=== PATIENT | male | born 1990 | race Hispanic/Latino ===

== ENCOUNTER 2017-11-09 14:11 | Emergency (ER) | payer SELFPAY ==
[2017-11-09 14:45] LABS: APPEARANCE,URINE CLEAR (CLEAR); BILIRUBIN,URINE NEGATIVE (NEGATIVE); COLOR,URINE YELLOW (YELLOW); GLUCOSE, URINE (UA) NEGATIVE (NEGATIVE); KETONES,URINE NEGATIVE (NEGATIVE); LEUKOCYTE ESTERASE ,URINE NEGATIVE (NEGATIVE); NITRATE,URINE NEGATIVE (NEGATIVE); OCCULT BLOOD,URINE NEGATIVE (NEGATIVE); PROTEIN,URINE NEGATIVE (NEGATIVE); UROBILINOGEN,URINE 0.2 mg/dL (0.2-1.0)
[2017-11-09] MEDS ORDERED: CEFTRIAXONE SODIUM 500 MG VIAL ONE (14:53)
[2017-11-09] MEDS ORDERED: AZITHROMYCIN 250 MG TABLET PO ONE (14:53)
[2017-11-09] MEDS ORDERED: LIDOCAINE HCL-MPF 1% 2ML VIAL ONE (14:54)
== END 2017-11-09 15:02 | disposition home or self-care (01) ==
LOC: EDH 14:11
DX: A64 Unspecified sexually transmitted disease (principal)
CPT/HCPCS: 81003; 87486; 87797; 96372; 99284; J0696; J3490

== ENCOUNTER 2018-05-06 19:45 | Emergency (ER) | payer OTHER ==
[2018-05-06] MEDS ORDERED: IBUPROFEN 600 MG TABLET ONE (20:27)
== END 2018-05-06 21:57 | disposition home or self-care (01) ==
LOC: EDH 19:45
DX: S20.221A Contusion of right back wall of thorax, initial encounter (principal); Y04.0XXA Assault by unarmed brawl or fight, initial encounter; Y93.89 Activity, other specified; Y92.89 Other specified places as the place of occurrence of the external cause; Y99.8 Other external cause status
CPT/HCPCS: 72070

== ENCOUNTER 2019-10-12 12:47 | Emergency (ER) | payer SELFPAY ==
[2019-10-12] MEDS ORDERED: ACETAMINOPHEN EXTRA STRENGTH 500 MG TABLET ONE ×2 (14:36→14:37)
[2019-10-12 15:04] LABS: RAPID GROUP A STREP NEGATIVE (NEGATIVE)
[2019-10-12] MEDS ORDERED: SODIUM CHLORIDE 0.9% 1000ML 2,000 ML IV ONE (15:29)
[2019-10-12 15:37] LABS: APPEARANCE,URINE CLEAR (CLEAR); BILIRUBIN,URINE SMALL (NEGATIVE); COLOR,URINE YELLOW (YELLOW); GLUCOSE, URINE (UA) NEGATIVE (NEGATIVE); KETONES,URINE 5 mg/dL (NEGATIVE); LEUKOCYTE ESTERASE ,URINE NEGATIVE (NEGATIVE); NITRATE,URINE NEGATIVE (NEGATIVE); OCCULT BLOOD,URINE TRACE-INTACT (NEGATIVE); PH,URINE 5.5 (5.0-8.0); PROTEIN,URINE 30 mg/dL (NEGATIVE)
[2019-10-12 15:41] LABS: BASOPHILS % (AUTO) 0.3 % (0.0-5.0); HEMATOCRIT 45.7 % (42-54); LYMPHOCYTES % (AUTO) 12.4 % (21.0-51.0); MEAN CORPUSCULAR HEMOGLOBIN 28.6 pg (27.0-33.0); MEAN CORPUSCULAR HGB CONC 33.7 g/dL (32.0-36.0); MEAN CORPUSCULAR VOLUME 84.9 fL (79-99); MONOCYTES % (AUTO) 9.8 % (3.0-13.0); NEUTROPHILS % (AUTO) 77.2 % (40.0-77.0); PLATELET COUNT (AUTO) 234 K/uL (130-400); RED BLOOD CELL COUNT(AUTO) 5.38 MIL/uL (4.50-6.20); RED CELL DISTRIBUTION WIDTH 13.4 % (11.0-15.5); WHITE BLOOD COUNT (AUTO) 5.8 K/uL (4.8-10.8)
[2019-10-12] MEDS ORDERED: IPRATROPIUM/ALBUTEROL SULFATE 3 ML SOLUTION IH ONE ×2 (15:43→16:30)
[2019-10-12 15:57] LABS: INR 1.07 (0.85-1.15); PARTIAL THROMBOPLASTIN TIME 32.1 SEC (26.3-35.5); PROTHROMBIN TIME 11.2 SEC (9.6-11.6)
[2019-10-12 16:02] LABS: CREATININE 1.2 mg/dL (0.5-1.5); POTASSIUM 3.6 mmol/L (3.5-5.1)
[2019-10-12] MEDS ORDERED: CEFTRIAXONE SODIUM 1 GM ONE (16:05)
[2019-10-12 16:06] LABS: ALBUMIN 3.9 g/dL (3.5-5.0); BILIRUBIN,TOTAL 0.4 mg/dL (0.2-1.0); TOTAL PROTEIN, SERUM 8.3 g/dL (6.0-8.3)
[2019-10-12 16:17] LABS: BACTERIA,URINE Few /HPF (None Seen); WBC,URINE 0-1 /HPF (0-1)
== END 2019-10-12 18:32 | disposition home or self-care (01) ==
LOC: EDH 12:47
DX: J18.9 Pneumonia, unspecified organism (principal); G40.909 Epilepsy, unspecified, not intractable, without status epilepticus; Z72.0 Tobacco use
CPT/HCPCS: 36415; 71046; 80053; 81001; 83605; 84484; 85025; 85610; 85730; 87040; 87804 ×2; 87880; 93005; 94640 ×2; 96374; 99285; J0696; J7030

== ENCOUNTER 2023-08-07 21:56 | Emergency (ER) | payer OTHER | END 2023-08-07 22:57 | disposition left against medical advice (07) | LOC: EDH 21:56 | DX: R22.0 Localized swelling, mass and lump, head (principal); Z53.21 Procedure and treatment not carried out due to patient leaving prior to being seen by health care provider ==

== ENCOUNTER 2024-08-18 08:16 | Emergency (ER) | payer SELFPAY ==
[~2024-08-18] VITALS: Ht 172.7 cm; Wt 104.3 kg
--- NOTE | 2024-08-18 09:03 | ERN ---
ED Note History of Present Illness Stated Complaint: BEE STING Chief Complaint: Allergic Reaction Time Seen by MD: 08:21 Dictation: This is a case of 34-year-old male with no significant past medical history who presented to the ER with the complaints right arm redness, swelling, pain after a bee sting. He stated that he was stung yesterday around 11:00 a.m., initially noticing redness and swelling at the site. However, the swelling has since worsened extending to his right arm and reaching up to the elbow today. He also complains of mild headache. He denies rashes, hives, dizziness, nausea, vomiting, difficulty in swallowing, throat pain, shortness of breath, chest pain, palpitations, abdominal pain, oliguria/anuria, diarrhea/constipation. Allergies: Coded Allergies: No Known Drug Allergies (Unverified Allergy, Unknown, 10/12/19) Home Meds Active Scripts Famotidine (Pepcid) 40 Mg Tablet, 1 TAB PO DAILY for heart burn, acidity for 7 Days, #7 TAB 0 Refills Prov:KAY CENTENO MD 08/18/24 Prednisone (Prednisone) 20 Mg Tablet, 1 TAB PO AD PRN for allergy reaction for 5 Days, #7 TAB 0 Refills Prednisone 5 day taper schedule Day 1 40 mg p.o. once Day2 30 mg p.o. once Day 3 20 mg p.o.once Day 4 10 mg PO once Day 5 5 mg p.o. once Prov:KAY CENTENO MD 08/18/24 Diphenhydramine HCl (Benadryl) 50 Mg Cap, 1 CAP PO HS PRN for ALLERGY SYMPTOMS for 4 Days, #5 CAP 0 Refills Prov:KAY CENTENO MD 08/18/24 Past Medical History Past Medical History: No Pertinent History Surgical History: None Review of System Dictation CONSTITUTIONAL: No chills, no fever, no weakness, no diaphoresis, no malaise. Right forearm pain, redness and swelling HEAD/FACE: No signs of trauma. EENT: No eye pain, no blurred vision, no tearing, no double vision, no ear pain, no ear discharge, no nose pain, no nasal congestion, no throat pain, no throat swelling, no mouth pain. RESPIRATORY: No cough, no orthopnea, no SOB, no stridor, no wheezing. CARDIOVASCULAR: No chest pain, no edema, no palpitations, no syncope. GASTROINTESTINAL/ABDOMINAL: No abdominal pain, no constipation, no diarrhea, no nausea, no vomiting. GENITOURINARY: No abnormal discharge, no dysuria, no frequent urination, no hematuria. No complaints of pain in the genitals. MUSCULOSKELETAL: No back pain, no gout, no joint pain, no joint swelling, no muscle pain, no muscle stiffness, no neck pain. NEUROLOGICAL/PSYCH: No anxiety, not depressed, no emotional problem, no headache, no numbness, no pre-existing deficit, no history of seizures, no tremors, no weakness. HEMATOLOGIC/LYMPHATIC: Not anemic, no history of blood clots, no apparent bleeding, no bruising, glands not swollen. All Systems Negative, Except as Noted. Initial Vital Sign VS Vital Signs Date Time Temp Pulse Resp B/P (MAP) Pulse Ox O2 Delivery O2 Flow Rate FiO2 08/18/24 08:21 97.5 74 20 174/147 97 Room Air 0 08/18/24 08:24 21 Physical Exam Dictation Physical Exam Dictation VITAL SIGNS: Reviewed. GENERAL APPEARANCE: Alert, oriented x3, no acute distress, obese. HEAD AND FACE: Non-traumatic. EYES: PERRL, pink conjunctivas, eyelid no trauma, anterior chamber clear. NOSE: No discharge, no bleeding. OROPHARYNX: Mouth normal, teeth no caries, tongue pink. Pharynx clear, no erythema. Tonsils no exudates, no abscesses noted. Mucous membrane moist. NECK: Supple, non-tender, no thyromegaly, no masses, no JVD, no bruits. BREAST: Deferred. CHEST: No tenderness, no crepitus, no paradoxical movement, no retractions. LUNGS: Clear, well-ventilated, symmetric, no rales, no wheezing, no rhonchi, no stridor, good breath sounds bilaterally. HEART: Regular rate, regular rhythm, no murmur, no gallops. VASCULAR: No peripheral edema. ABDOMEN: Soft, positive bowel sounds, nondistended, no guarding, nontender, no rebound, no masses no hepatomegaly, no splenomegaly, no De Leon's sign, no hernias. RECTAL: Deferred. GENITAL: Deferred. NEUROLOGICAL: Normal speech, gross motor function intact, gross sensory function intact. MUSCULOSKELETAL: Neck nontender, full range of motion, back nontender, full range of motion. EXTREMITIES: Erythema, swelling around the sting site on right forearm extending up to the elbow Nontender, full range of motion. SKIN: Color pink, dry, no turgor, no rash, no lacerations, no abrasions, no contusions. LYMPHATICS: Deferred. ED Course ED Course Orders Procedure Category Date Status Time Methylprednisolone PHA 08/18/24 Complete Succ 125mg (Solu-Medr 09:00 Diphenhydramine Hcl PHA 08/18/24 Complete (Benadryl Inj) 09:00 Famotidine 20mg Tab PHA 08/18/24 Complete (Pepcid 20mg Tab) 09:00 Ketorolac 60mg/2ml PHA 08/18/24 Complete (Toradol 60mg/2ml) 09:00 Current Medications Medications (Trade) Dose Ordered Sig/Alicja Route PRN Reason Start Time Stop Time Status Last Admin Dose Admin Diphenhydramine HCl (BENAdryl INJ) 50 mg ONCE ONCE IM 08/18/24 09:00 08/18/24 09:01 DC 08/18/24 09:06 Famotidine (Pepcid 20mg Tab) 40 mg ONCE ONCE PO 08/18/24 09:00 08/18/24 09:01 DC 08/18/24 09:05 Ketorolac Tromethamine (toRADol 60MG/ 2ML) 60 mg ONCE ONCE IM 08/18/24 09:00 08/18/24 09:01 DC 08/18/24 09:06 Methylprednisolone Sodium Succinate (Solu-medROL 125MG) 125 mg ONCE ONCE IM 08/18/24 09:00 08/18/24 09:01 DC 08/18/24 09:05 Vital Signs Date Time Temp Pulse Resp B/P (MAP) Pulse Ox O2 Delivery O2 Flow Rate FiO2 08/18/24 10:04 98.1 55 18 99/65 98 Room Air* 0 08/18/24 08:43 97.5 65 18 115/54 100 Room Air* 0 08/18/24 08:24 97.5 74 18 174/147 97 Room Air* 0 21 08/18/24 08:21 97.5 74 20 174/147 97 Room Air 0 Medical Decision Making MDM MDM Potential differential diagnoses include: Acute localized ALLERGIC reaction to bee sting without any anaphylactic and systemic reaction Assessment: I will re-evaluate the patient after treatment and diagnostic exams have returned to determine whether they require further testing, can be safely discharged home, or need admission for further treatment and evaluation. Given the social determinants of health affecting care, including literacy, ac cess to medical care, prescription drug management, and [id number] drugs, I will ensure that treatment plans are tailored accordingly. Revaluation : PATIENT IS ALERT AWAKE AND ORIENTED. HEMODYNAMICALLY STABLE. STATES THAT HE FEELS BETTER AND HIS PAIN HAS SIGNIFICANTLY IMPROVED. Disposition: PATIENT IS BEING DISCHARGED HOME WITH ORAL MEDICATIONS WITH PREDNISONE [TAPERED OVER 5 DAYS] P.O., BENADRYL 50 MG P.O. HS P.R.N. FOR 4 DAYS, PEPCID 40 MG P.O. DAILY P.R.N. FOR 7 DAYS PATIENT IS ADVISED TO Follow-up PCP within 2-3 days Keep the sting site clean and dry Avoid scratching to prevent irritation or infection Apply hot compresses to reduce swelling and pain Use [id number] pain relievers like acetaminophen or ibuprofen for pain p.r.n. Keep the right arm elevated whenever possible to reduce swelling Monitor for symptoms like fever, chills, difficulty breathing or swallowing, hives, increasing redness or warmth or pus and seek immediate medical attention in such scenario DX & DISP Disposition: Discharge Departure Impression: Primary Impression: Bee sting reaction Critical Time: 30 minutes Condition: Stable Scripts Famotidine (Pepcid) 40 Mg Tablet 1 TAB PO DAILY for heart burn, acidity for 7 Days, #7 TAB 0 Refills Prov: KAY CENTENO MD 08/18/24 Prednisone (Prednisone) 20 Mg Tablet 1 TAB PO AD PRN for allergy reaction for 5 Days, #7 TAB 0 Refills Prednisone 5 day taper schedule Day 1 40 mg p.o. once Day2 30 mg p.o. once Day 3 20 mg p.o.once Day 4 10 mg PO once Day 5 5 mg p.o. once Prov: KAY CENTENO MD 08/18/24 Diphenhydramine HCl (Benadryl) 50 Mg Cap 1 CAP PO HS PRN for ALLERGY SYMPTOMS for 4 Days, #5 CAP 0 Refills Prov: KAY CENETNO MD 08/18/24 Referrals: SELF,REFERRAL (PCP) I personally interviewed and examined this patient with the resident. I have a low index of suspicion for infection. There was no sign of compartment syndrome. There was no evidence for systemic allergic reaction. I concur with disposition and management KAY CENTENO MD Aug 18, 2024 09:03 CE LUBIN MD Aug 18, 2024 10:03
[2024-08-18] MEDS: FAMOTIDINE 20MG TAB PO ONE (09:05)
[2024-08-18] MEDS: Solu-medROL 125MG VIAL IM ONE (09:05)
[2024-08-18] MEDS: DiphenhydrAMINE HCL 50 MG/ML VIAL IM ONE (09:06)
[2024-08-18] MEDS: ketOROlac 60 MG VIAL (30MG/ML) IM ONE (09:06)
[2024-08-18] MEDS ORDERED: PRED20TA3 PO (10:00)
[2024-08-18] MEDS ORDERED: DIPH50 PO (10:00)
[2024-08-18] MEDS ORDERED: FAMO40TA75 PO (10:00)
[2024-08-18 10:04] VITALS: BP 99/65; PULSE 55; RESP 18; TEMP 98; O2SAT 98
== END 2024-08-18 10:22 | disposition home or self-care (01) ==
LOC: EDH 08:16
DX: T63.441A Toxic effect of venom of bees, accidental (unintentional), initial encounter (principal); Y92.89 Other specified places as the place of occurrence of the external cause
CPT/HCPCS: 99284; 96372 ×3; J1200; J2919; J1885